=== PATIENT | male | born 1970 | race Caucasian/White ===

== ENCOUNTER 2018-05-27 09:52 | Day surgery (SDC) | payer MEDICARE ==
[2018-05-27] VITALS (13 sets, daily range): BP systolic 132–163; BP diastolic 82–103
[~2018-05-27] VITALS: Ht 180.3 cm; Wt 98.9 kg
[2018-05-27] MEDS ORDERED: normal saline 1000ml 1,000 ML IV SCH (10:15)
[2018-05-27] MEDS ORDERED: nitroGLYCERIN 0.4mg SUBLingual tab SL PRN (10:15)
[2018-05-27] MEDS ORDERED: LORazepam 0.5 MG tablet PO PRN (10:15)
[2018-05-27] MEDS ORDERED: diphenhydrAMINE 25mg capsule PO PRN (10:15)
[2018-05-27] MEDS ORDERED: OMEP20TA23 PO (11:15)
[2018-05-27] MEDS ORDERED: LISI40TA4 PO (11:15)
[2018-05-27] MEDS ORDERED: ATOR40TA PO (11:15)
[2018-05-27] MEDS ORDERED: RANI-388 PO (11:15)
[2018-05-27] MEDS ORDERED: CITA-278 PO (11:15)
[2018-05-27] MEDS ORDERED: MORP30CA16 PO (11:15)
[2018-05-27] MEDS ORDERED: Oxycodone PO (11:15)
[2018-05-27] MEDS ORDERED: ASPI81TA52 PO (11:15)
[2018-05-27] MEDS ORDERED: LIDOcaine 1% 30ml preserv. free vial ONE (11:51)
[2018-05-27] MEDS ORDERED: fentaNYL/PF 50MCG/1 ML 2ML syringe ONE (11:51)
[2018-05-27] MEDS ORDERED: midazolam 2 mg/2 ml injection ONE ×2 (11:51→12:28)
[2018-05-27] MEDS ORDERED: iohexol 350 MG/ML 50ML vial IV ONE (11:52)
[2018-05-27] MEDS ORDERED: heparin 1,000 UNITS/NS 500ml 500 ML ONE (11:52)
[2018-05-27] MEDS ORDERED: iohexol 350MG/ML 100ml bottle IV ONE (11:52)
[2018-05-27] MEDS ORDERED: proCHLORperazine 10 MG/2 ml inj ONE (12:28)
[2018-05-27] MEDS ORDERED: acetaminophen 325mg tablet PO PRN (14:10)
[2018-05-27] MEDS ORDERED: HYDROcodone/acetaminophen 10/325mg tab PO PRN (14:10)
[2018-05-27] MEDS ORDERED: proCHLORperazine 10 MG/2 ml inj IV PRN (14:10)
[2018-05-27] MEDS ORDERED: ondansetron/PF 4mg/2ml inj IV PRN (14:10)
[2018-05-27] MEDS ORDERED: OXAZEpam 15mg capsule PO PRN (14:10)
[2018-05-27] MEDS ORDERED: HYDROcodone/acetaminophen 5mg/325mg tablet PO PRN (14:10)
[2018-05-27] MEDS ORDERED: MORPHINE SULFATE PO PRN (14:25)
[2018-05-27] MEDS ORDERED: oxyCODONE SR 10mg (sust. release) tab PO SCH (14:27)
[2018-05-27] MEDS ORDERED: citalopram 20mg tablet PO SCH (14:30)
[2018-05-27] MEDS ORDERED: aspirin 81mg tablet.DR PO SCH (14:32)
[2018-05-27] MEDS ORDERED: lisinopril 20mg tablet PO SCH (14:33)
[2018-05-27] MEDS ORDERED: atorvastatin 20mg tablet PO SCH (14:34)
[2018-05-27] MEDS ORDERED: pantoprazole 40mg Tablet.DR PO SCH (14:36)
[2018-05-28] MEDS ORDERED: RANITIDINE HCL 150 MG PO SCH (08:00)
== END 2018-05-27 19:30 | disposition home or self-care (01) ==
LOC: SSTAY O 09:52
PROVIDERS: ATTEND Internal Medicine Cardiovascular Disease
DX: I25.10 Atherosclerotic heart disease of native coronary artery without angina pectoris (principal); I10 Essential (primary) hypertension; E78.5 Hyperlipidemia, unspecified; M19.90 Unspecified osteoarthritis, unspecified site; G89.29 Other chronic pain; F10.21 Alcohol dependence, in remission; Z79.82 Long term (current) use of aspirin; Z79.891 Long term (current) use of opiate analgesic; Z88.5 Allergy status to narcotic agent; Z88.1 Allergy status to other antibiotic agents; Z72.0 Tobacco use; Z79.899 Other long term (current) drug therapy; Z98.890 Other specified postprocedural states; Z88.8 Allergy status to other drugs, medicaments and biological substances
CPT/HCPCS: 93458; 99152; 99153; A6257; C1760; C1769; J1644; J2250; J3010; J3490; J7030; Q0163; Q9967; A4620; J0780